=== PATIENT | female | born 1960 | race Caucasian/White ===

== ENCOUNTER → 2016-10-17 | Outpatient (CLI) | payer OTHER ==
--- NOTE | 2016-10-17 16:35 | MAMMOGRAPHY REPORT ---
BILATERAL DIGITAL DIAGNOSTIC MAMMOGRAM TOMOSYNTHESIS WITH CAD: 10/17/2016 CLINICAL HISTORY: Short interval follow-up of right breast calcifications. TECHNIQUE: Breast tomosynthesis in addition to standard 2D mammography was performed. Current study was also evaluated with a Computer Aided Detection (CAD) system. Bilateral CC and MLO 2-D and brittney synthesis images and spot magnification right cc and ML views were obtained. COMPARISON: Comparison is made to exams dated: 04/08/2016 mammogram, 09/28/2015 mammogram, 03/20/2014 m ammogram, 10/05/2015 mammogram - [facility], and 09/15/2012 mammogram - [facility]. BREAST COMPOSITION: There are scattered areas of fibroglandular density in both breasts. FINDINGS: Spot magnification views of the right breast demonstrate a small 9 mm cluster of coarse h eterogeneous calcifications in the right upper inner quadrant posteriorly. The calcifications are s lightly increased compared to prior exams including the 10/05/2015 exam. Given the slight interval in crease, the calcifications are indeterminate and stereotactic biopsy is recommended for further eval uation. The remainder of both breasts are stable compared to prior exams, without suspicious masses, calcifi cations, or areas of architectural distortion noted. A biopsy marker clip is again seen within the left upper outer quadrant. IMPRESSION: ACR BI-RADS CATEGORY 4: SUSPICIOUS Slight interval increase in grouped calcifications in the right upper inner quadrant posteriorly. G iven the increase, the calcifications are indeterminate and attempt at stereotactic biopsy is recomm ended for further evaluation. If the calcifications are too far posterior to biopsy with stereotact ic guidance, then surgical biopsy is recommended. A phone call was made to the physician's office to confirm faxed results were received. The patient has been verbally notified of the results. She tentatively scheduled the biopsy before leaving the department. Approximately 10% of breast cancers are not detected with mammography. A negative mammographic repor t should not delay biopsy if a clinically suggestive mass is present. Kathleen Gloria M.D. /:10/17/2016 14:59:05 Flat Locker: Rachelle Bear, [facility] letter sent: Abnormal 4/5 BI-RADS Code: ACR BI-RADS Category 4: Suspicious
== END | disposition home or self-care (01) ==
LOC: C.MAMM 14:06
PROVIDERS: ATTEND Obstetrics & Gynecology
DX: R92.1 Mammographic calcification found on diagnostic imaging of breast (principal)

== ENCOUNTER → 2016-11-05 | Outpatient (CLI) | payer OTHER ==
--- NOTE | 2016-11-05 15:03 | Discharge Instructions ---
Discharge Instructions Procedure Procedure Date: Nov 05, 2016. Reason for visit: Right Calcifications. Discharge Discharge Date: Nov 05, 2016. Discharge Diagnosis: status post breast biopsy Instructions Activity Recommendations: Additional Limitations (see below) Return to School/Work: no limitations Recommended Home Diet: No Limitations Provider Instructions: ACTIVITY RECOMMENDATIONS: * No lifting, pushing, pulling or exercising the affected side for three days. RETURN TO SCHOOL/WORK: * You may return to work/school after the procedure, but do not perform any strenuous activities for 24 to 48 hours. MEDICATIONS: * Tylenol (two 325 mg) every four to six hours if needed for mild pain (if not allergic to Tylenol). DIET: * Resume previous diet. SPECIAL CARE INSTRUCTIONS: * Keep biopsy site dry for 24 hours. May shower after 24 hours, but do not soak (bathe) incision. * May remove Tegaderm (plastic patch) tomorrow AFTER showering. * Leave the steri-strips on for one week. Allow the steri-strips to fall off by themselves. If not off after one week, you may remove them. You may place a Bandaid crosswise over the strips, if desired. * Apply ice 10 minutes on and 10 minutes off as needed. * Wear a bra at bedtime to sleep more comfortably for 2-3 days. * Your referring physician should have the results after approximately 5 to 7 business days. * Call for unusual bleeding, fever, drainage, etc or if you have any questions call during normal business hours or after hours call Dr Gloria, . FOLLOW UP VISIT: Follow-up with Referring Physician as scheduled. Waldo Benson Recommendations: Call your doctor if: * Temperature above 101 degrees * Pain not relieved by pain medicine ordered * There is increased drainage or redness from any incision * You have any unanswered questions or concerns. Your Doctors Instructions noted above were prepared by provider Kathleen Gloria. Patient Signature Section: Patient Instructions Signature Page Karla Kofi Patient (or Guardian) Signature/Date: I have read and understand the instructions given to me by my caregivers. Caregiver/RN/Doctor Signature/Date: The above-named patient and/or guardian has received patient instructions on this date. + Original Patient Signature Page (only) stays with chart. Please make copy for patient.
--- NOTE | 2016-11-06 07:55 | MAMMOGRAPHY REPORT ---
UNILATERAL RIGHT DIGITAL DIAGNOSTIC MAMMOGRAM: 11/05/2016 CLINICAL HISTORY: Status post right breast stereotactic biopsy. TECHNIQUE: Postprocedural right CC, X CCM, and XCCL views were obtained. COMPARISON: Comparison is made to exams dated: 10/17/2016 mammogram, 10/05/2015 mammogram, 03/20/2014 m ammogram - [facility], and 09/15/2012 mammogram - [facility]. BREAST COMPOSITION: There are scattered areas of fibroglandular density in the right breast. FINDINGS: A biopsy marker clip is seen at the site of the biopsied calcifications in the right uppe r inner quadrant. There is a possible small 1.7 cm hematoma at the biopsy site. IMPRESSION: POST PROCEDURE IMAGING FOR MARKER PLACEMENT New biopsy marker clip status post right breast stereotactic biopsy. Pathology results are pending. Approximately 10% of breast cancers are not detected with mammography. A negative mammographic repor t should not delay biopsy if a clinically suggestive mass is present. Kathleen Gloria M.D. ah/:11/05/2016 15:21:42 Store Sales Manager: Rachelle Ellis RT(R)(Rolf), [facility] BI-RADS Code: Post Procedure Imaging For Marker Placement
--- NOTE | 2016-11-06 07:55 | MAMMOGRAPHY REPORT ---
STEREOTACTIC GUIDED BIOPSY RIGHT BREAST: 11/05/2016 CLINICAL HISTORY: Indeterminate calcifications in the right upper inner quadrant posteriorly. PATIENT CONSENT: The procedure, risks, benefits, and alternatives of stereotactic biopsy with clip p lacement were discussed with the patient, and verbal and written consent was obtained. A timeout wa s performed immediately prior to the procedure. PROCEDURE DESCRIPTION: With stereotactic guidance, aseptic technique, and lidocaine as a local anest hetic (1% lidocaine to anesthetize the skin and 1% lidocaine with epinephrine to anesthetize the bonnie per tissues), the area of concern in the right upper inner quadrant was sampled multiple times with a 9-gauge vacuum-assisted biopsy needle ([employer]). The path of approach was craniocaudal. The specimen radiograph demonstrates calcifications to be present in the samples. A metallic marker cli p was placed at the biopsy site. This was confirmed on postprocedure mammograms. Direct pressure w as applied at the biopsy site and hemostasis was readily achieved. The patient tolerated the proced ure without complication. She was given wound care instructions. COMPARISON: Comparison is made to exams dated: 10/17/2016 mammogram, 04/08/2016 mammogram, 10/05/2015 ma mmogram, 03/20/2014 mammogram - [facility], 09/15/2012 mammogram - [facility], and 09/28/2015 mammogram - [facility]. IMPRESSION: STEREOTACTIC GUIDED BIOPSY Stereotactic biopsy of indeterminate calcifications in the right upper inner quadrant posteriorly, w ith clip placement. The patient will receive pathology results from her referring provider. Kathleen Gloria M.D. /:11/05/2016 15:03:44 Php Website Developer: Kathleen Gloria MD, [facility]
== END | disposition home or self-care (01) ==
LOC: C.MAMM 14:01
PROVIDERS: ATTEND Obstetrics & Gynecology
DX: D24.1 Benign neoplasm of right breast (principal); R92.0 Mammographic microcalcification found on diagnostic imaging of breast; N60.91 Unspecified benign mammary dysplasia of right breast

== ENCOUNTER → 2018-03-24 | Outpatient (CLI) | payer OTHER | END | disposition home or self-care (01) | LOC: C.RDSM 13:24 | PROVIDERS: ATTEND Physical Medicine & Rehabilitation Sports Medicine | DX: M79.672 Pain in left foot (principal) ==

== ENCOUNTER → 2018-03-24 | Outpatient (CLI) | payer OTHER ==
[2018-03-24 09:38] LABS: BASO % 0.4 %; BASO ABS # 0.02 K/uL (0-0.2); EOS % 2.4 %; EOS ABS # 0.13 K/uL (0-0.5); HEMATOCRIT 40.7 % (37-47); HEMOGLOBIN 13.2 g/dL (12.0-16.0); IG# 0.01 K/uL (0.00-0.02); LYMPH % 26.6 %; LYMPH ABS # 1.47 K/uL (1.2-3.4); MEAN CELL VOLUME 93.1 fL (80-100); MEAN CORPUSCULAR HEMOGLOBIN 30.2 pg (25-34); MEAN CORPUSCULAR HGB CONC 32.4 g/dl (32-36); MEAN PLATELET VOLUME 9.9 fL (7.4-10.4); MONO % 6.9 %; MONO ABS # 0.38 K/uL (0.11-0.59); NEUT % 63.5 %; NEUT ABS # 3.52 K/uL (1.4-6.5); PLATELET COUNT 301 K/uL (130-400); RED CELL DISTRIBUTION WIDTH CV 12.6 % (11.5-14.5); RED CELL DISTRIBUTION WIDTH SD 42.8 fL (36.4-46.3); WHITE BLOOD COUNT 5.53 K/uL (4.8-10.8)
[2018-03-24 10:16] LABS: ALBUMIN 3.9 gm/dl (3.4-5.0); ALKALINE PHOSPHATASE 119 U/L (45-117); ALT/SGPT 45 U/L (12-78); AST/SGOT 40 U/L (15-37); BLOOD UREA NITROGEN 10 mg/dl (7-18); CALCIUM 9.3 mg/dl (8.5-10.1); CARBON DIOXIDE 29 mmol/L (21-32); CREATININE 0.76 mg/dl (0.60-1.20); GLUCOSE 100 mg/dl (70-99); POTASSIUM 3.7 mmol/L (3.5-5.1); SODIUM 139 mmol/L (136-145); TOTAL PROTEIN 7.9 gm/dl (6.4-8.2)
== END | disposition home or self-care (01) ==
LOC: C.LAB1850 07:04
PROVIDERS: ATTEND Family Medicine
DX: R60.0 Localized edema (principal); M13.0 Polyarthritis, unspecified; I10 Essential (primary) hypertension; R53.83 Other fatigue